=== PATIENT | male | born 1950 | race Caucasian/White ===

== ENCOUNTER 2017-06-09 12:45 | Day surgery (SDC) | payer OTHER ==
[~2017-06-09] VITALS: Ht 177.8 cm; Wt 113.4 kg
[~2017-06-09 12:45] MED LIST: ALPHAGAN 0100 DROP/5 BOTH EYES; CIPRO500 MG PO; DORZOLAMIDE-TIM10 ML BOTH EYES; INDERAL20 MG PO; LATANOPROST2.5 ML BOTH EYES; TEARS AGAIN15 ML BOTH EYES; TRUSOPT 2%200 DROP/2 BOTH EYES; TYLENOL EXTRA500 MG PO
[2017-06-09 13:48] VITALS: BP 134/67
[2017-06-09 21:53] LABS: HEMATOCRIT 32.1 % (38.0-50.0); MCV 99.7 FL (86-99)
[2017-06-09 21:55] LABS: HEMOGLOBIN 10.5 G/DL (12.5-16.6)
[2017-06-09 22:15] LABS: CHLORIDE 112 MEQ/L (99-109); CREATININE 0.9 MG/DL (0.6-1.3); GFR ESTIMATE (CALCULATED) > 59 mL/min/ (58.99-99999); GLUCOSE 90 mg/dL (70-99); POTASSIUM 3.4 MEQ/L (3.7-5.4); SODIUM 140 MEQ/L (136-147); UREA NITROGEN (BUN) 13 mg/dL (9-23)
[2017-06-10 09:30] VITALS: BP 128/62
[2017-06-10 10:30] VITALS: BP 130/74
== END 2017-06-10 11:10 | disposition home or self-care (01) ==
LOC: SDC 12:45 → ENRESERV 21:28 → 2SOUTH 21:33 → ENRESERV 23:48 → CANRESERV 23:48 → 2SOUTH 06-10 11:10
PROVIDERS: Orthopaedic Surgery
PROC: 0PSG04Z Reposition Left Humeral Shaft with Internal Fixation Device, Open Approach (ICD-10-PCS; principal; 2017-06-09)
DX: S42.472A Displaced transcondylar fracture of left humerus, initial encounter for closed fracture (principal); H40.9 Unspecified glaucoma; I10 Essential (primary) hypertension; H91.90 Unspecified hearing loss, unspecified ear; H04.129 Dry eye syndrome of unspecified lacrimal gland; M54.9 Dorsalgia, unspecified; M54.2 Cervicalgia; F17.220 Nicotine dependence, chewing tobacco, uncomplicated; W01.0XXA Fall on same level from slipping, tripping and stumbling without subsequent striking against object, initial encounter; Y93.K1 Activity, walking an animal
CPT/HCPCS: 73070; 76000; 80048; 85014; 85018; 87641; 93005; C1713; G0378; J0131; J0690; J2250; J2795; J3010